=== PATIENT | female | born 1955 | race Caucasian/White ===

== ENCOUNTER 2018-08-02 09:22 | Emergency (ER) | payer SELFPAY ==
[~2018-08-02] VITALS: Ht 157.5 cm; Wt 77.3 kg
[2018-08-02] MEDS ORDERED: [UNRECOGNIZED DRUG - OTHER] PO (09:43)
[2018-08-02] MEDS ORDERED: [UNRECOGNIZED DRUG - OTHER] PO (09:43)
[2018-08-02 09:44] LABS: GLUCOSE,POINT OF CARE 134 MG/DL (70-110)
[2018-08-02] MEDS ORDERED: KETOROLAC TROMETHAMINE 60 MG/2 ML VIAL IM ONE (12:30)
[2018-08-02 14:41] VITALS: BP 143/80
== END 2018-08-02 14:43 | disposition home or self-care (01) ==
LOC: EMS 09:26
DX: R07.0 Pain in throat (principal); R09.89 Other specified symptoms and signs involving the circulatory and respiratory systems; I10 Essential (primary) hypertension; E11.9 Type 2 diabetes mellitus without complications
CPT/HCPCS: 70490; 82962; 96372; 99284; J1885